=== PATIENT | female | born 1990 | race Caucasian/White ===

== ENCOUNTER 2021-05-27 00:57 | Emergency (ER) | payer OTHER, SELFPAY ==
[2021-05-27 01:03] VITALS: BP 104/61; PULSE 118; RESP 18; TEMP 37.2; O2SAT 98
[2021-05-27] MEDS: SODIUM CHLORIDE 0.9% IV 1,000 ML 999 ML IV CONT (02:13)
[2021-05-27] MEDS: KETOROLAC 30 MG/ML VIAL (*BKC) IV PUSH (02:14)
[2021-05-27] MEDS: ONDANSETRON INJ 4 MG/2 ML VIAL IV PUSH (02:14)
[2021-05-27 02:24] LABS: Basophils Percent Auto 0.2 % (0.2-1.2); Eosinophils Percent Auto 0.1 % (0-4.4); Hematocrit 38.6 % (37.0-47.0); Hemoglobin 13.3 g/dL (12.0-15.0); Immature Granulocyte Absolute 0.05 K/mm3 (0.00-0.031); Immature Granulocyte Percent A 0.5 % (0-0.5); Lymphocytes Absolute Auto 0.47 K/mm3 (0.9-3.2); Lymphocytes Percent Auto 5.1 % (18.3-44.2); Mean Corpuscular HGB Conc 34.5 g/dl (32-36); Mean Corpuscular Hemoglobin 30.9 pg (26-34); Mean Corpuscular Volume 89.6 fl (80-100); Mean Platelet Volume 10.1 fl (7.4-10.4); Monocytes Absolute Auto 0.7 K/mm3 (0.1-0.6); Neutrophils Absolute Auto 7.9 K/mm3 (1.3-6.7); Neutrophils Percent Auto 86.1 % (45.5-73.1); Platelet Count Result 297 k/mm3 (150-375); Red Blood Count 4.31 M/mm3 (4.2-5.4); White Blood Count 9.1 K/mm3 (4.5-10.0)
[2021-05-27 02:42] LABS: Add Urine Microscopic? YES; Appearance Urine Cloudy (Clear); Bacteria Urine Trace /hpf; Bilirubin Urine Negative (Negative); Blood Urine 1+ (Negative); Color Urine Yellow (Yellow); Glucose Urine UA Negative (Negative); Ketones Urine Trace mg/dL (Negative); Leukocyte Esterase Ur Negative LEU/UL (Negative); Mucus Urine Moderate /lpf; Nitrate Urine Positive (Negative); Protein Urine Negative (Negative); RBC Urine 0-2 /hpf (0-2); Specific Grav Ur 1.017 (1.001-1.035); Squamous Epithelial Cell Urine Many /hpf (Few); Urobilinogen Urine Negative mg/dL (<2.0)
[2021-05-27 02:46] LABS: Alanine Aminotransferase 15 U/L (4-35); Albumin Level 4.8 g/dL (3.5-5.1); Alkaline Phosphatase 62 U/L (38-126); Anion Gap 10 mmol/L (8-16); Aspartate Amino Transferase 24 U/L (14-36); Bilirubin,Total 0.3 mg/dL (0.2-1.3); Blood Urea Nitrogen 13 mg/dL (7-17); Carbon Dioxide 25 mmol/L (22-30); Chloride 100 mmol/L (98-107); Estimated CRCL calculation 98 ml/min; Estimated Glomerular Filt Rate > 60; Glucose 122 mg/dL (65-110); Lipase 44 U/L (23-300); Potassium 3.8 mmol/L (3.4-5.0); Sodium 135 mmol/L (137-145)
[2021-05-27 03:06] VITALS: BP 113/61; PULSE 100; RESP 15; TEMP 36.9; O2SAT 99
[2021-05-27 05:43] VITALS: BP 95/53; PULSE 90; RESP 15; TEMP 36.6; O2SAT 98
--- NOTE | 2021-05-27 05:49 | ED.GENADULT ---
HPI - General Adult General Chief complaint: Nausea/Vomiting/Diarrhea Stated complaint: flu like symptoms, back pain Time Seen by Provider: 05/27/21 01:43 History of Present Illness HPI narrative: Patient is a 31-year-old female who presents ER with sudden onset flulike symptoms. She developed fever with body aches going from her back to her arms. No numbness or tingling. Denies urinary frequency urgency or dysuria. No runny nose or sore throat or productive cough. No known sick contacts. She is vaccinated against Covid. No loss of taste or smell. Related Data Allergies Allergy/AdvReac Type Severity Reaction Status Date / Time No Known Allergies Allergy Verified 05/27/21 01:46 Review of Systems Review of Systems: All systems reviewed & are unremarkable except as noted in HPI and below Constitutional: Constitutional: Reports chills, Reports fever(s) and Reports weakness ENT: Denies nasal congestion and Denies sore throat Cardiovascular: Cardiovascular: Denies chest pain, Denies rapid heart rate and Denies radiating jaw, neck or arm pain Gastrointestinal: Gastrointestinal: Denies nausea and Denies vomiting Genitourinary: Genitourinary: Denies nocturia and Denies dysuria Musculoskeletal: Musculoskeletal: Reports back pain (Muscle aches), Reports myalgias and Reports muscle cramps PMFSH Past Medical History Medical History (Updated 05/27/21 @ 06:33 by Benji Donato MD) Healthy female adult Surgical History Surgical History (Updated 05/27/21 @ 05:51 by Benji Donato MD) No history of previous surgery Social History Social History (Updated 05/27/21 @ 05:52 by Benji Donato MD) Smoking status: Never smoker Exam Narrative: GENERAL: Uncomfortable-appearing, well-nourished, and in no acute distress. HEAD: Normocephalic, atraumatic. ENT: Nares clear, no rhinorrhea or epistaxis. Mucous membranes moist. CHEST: Clear to auscultation. No respiratory distress. HEART: Regular rate and rhythm. Normal peripheral pulses. ABDOMEN: Soft, nontender, nondistended. EXTREMITIES: Normal range of motion. No edema. SKIN: Warm, dry, no rash. NEURO: Alert and oriented x3. PSYCH: Normal mood and affect. Course Course Emergency Course: Feels markedly improved with fluid and Toradol. Influenza negative. Will swab for Covid and discharge. Vital Signs Vital signs: Vital Signs Temperature 98.9 F 05/27/21 01:03 Pulse Rate 118 H 05/27/21 01:03 Respiratory Rate 18 05/27/21 01:03 Blood Pressure 104/61 05/27/21 01:03 Pulse Oximetry 98 05/27/21 01:03 Temperature 97.9 F 05/27/21 05:43 Pulse Rate 90 05/27/21 05:43 Respiratory Rate 15 05/27/21 05:43 Blood Pressure 95/53 L 05/27/21 05:43 Pulse Oximetry 98 05/27/21 05:43 Medical Decision Making Vital Signs Vital Signs: Vital Signs Temperature 98.9 F 05/27/21 01:03 Pulse Rate 118 H 05/27/21 01:03 Respiratory Rate 18 05/27/21 01:03 Blood Pressure 104/61 05/27/21 01:03 Pulse Oximetry 98 05/27/21 01:03 Temperature 97.9 F 05/27/21 05:43 Pulse Rate 90 05/27/21 05:43 Respiratory Rate 15 05/27/21 05:43 Blood Pressure 95/53 L 05/27/21 05:43 Pulse Oximetry 98 05/27/21 05:43 Lab Data Result diagrams: 05/27/21 02:15 05/27/21 02:16 Labs: Lab Results 05/27/21 05/27/21 05/27/21 Range/Units 02:15 02:15 02:16 WBC 9.1 (4.5-10.0) K/mm3 RBC 4.31 (4.2-5.4) M/mm3 Hgb 13.3 (12.0-15.0) g/dL Hct 38.6 (37.0-47.0) % MCV 89.6 (80-100) fl MCH 30.9 (26-34) pg MCHC 34.5 (32-36) g/dl RDW 12.0 (11.5-14.5) % Plt Count 297 (150-375) k/mm3 MPV 10.1 (7.4-10.4) fl Immature Gran % (Auto) 0.5 (0-0.5) % Neut % (Auto) 86.1 H (45.5-73.1) % Lymph % (Auto) 5.1 L (18.3-44.2) % Kaufman % (Auto) 8.0 (2.6-8.5) % Eos % (Auto) 0.1 (0-4.4) % Baso % (Auto) 0.2 (0.2-1.2) % Lymph # (Auto) 0.47 L (0.9-3.2) K/m
[2021-05-27 20:34] LABS: SARS-CoV-2 RNA PCR Positive
== END 2021-05-27 07:00 | disposition home or self-care (01) ==
PROVIDERS: Emergency Provider Emergency Medicine
DX: U07.1 COVID-19 (principal); R50.9 Fever, unspecified
CPT/HCPCS: 36415; 80053; 81001; 83690; 85025; 87804; 96361; 96374; 96375; 99284; C9803; J1885; J2405; J7030; U0003; U0005